=== PATIENT | male | born 1990 | race Caucasian/White ===

== ENCOUNTER 2019-03-11 19:38 | Emergency (ER) | payer MEDICAID ==
[~2019-03-11] VITALS: Ht 175.3 cm; Wt 68.0 kg
[2019-03-12] MEDS ORDERED: lamoTRIgine 100 MG TAB PO ONE
[2019-03-12 00:35] VITALS: BP 136/78
== END 2019-03-12 00:39 | disposition home or self-care (01) ==
LOC: ER 19:38
DX: R56.9 Unspecified convulsions (principal); F17.210 Nicotine dependence, cigarettes, uncomplicated; Z76.0 Encounter for issue of repeat prescription; Z88.1 Allergy status to other antibiotic agents

== ENCOUNTER 2021-01-14 13:26 | Emergency (ER) | payer MEDICAID ==
[~2021-01-14] VITALS: Ht 175.3 cm; Wt 63.5 kg
[2021-01-14 13:29] VITALS: BP 109/60
== END 2021-01-14 17:57 | disposition left against medical advice (07) ==
LOC: ER 13:26
DX: T23.001D Burn of unspecified degree of right hand, unspecified site, subsequent encounter (principal); Z53.21 Procedure and treatment not carried out due to patient leaving prior to being seen by health care provider